=== PATIENT | female | born 1980 | race African-American/Black ===

== ENCOUNTER 2018-10-21 19:14 | Emergency (ER) | payer BC ==
[2018-10-21 19:48] LABS: #Basophils 0.1 thou/uL (0.0-0.2); #Eosinphils 0.4 thou/uL (0.0-0.7); #Lymphocytes 4.1 thou/uL (1.20-3.40); #Monocytes 0.7 thou/uL (0.11-0.59); #Neutrophils 4.1 thou/uL (1.40-6.50); %Basophils 1.4 % (0.0-1.0); %Eosinophils 4.4 % (0.0-10.0); %Lymphocytes 43.5 % (21.0-51.0); %Monocytes 7.2 % (0.0-10.0); %Neutrophils 43.5 % (42.0-75.0); Hemoglobin 14.8 g/dL (12.0-16.0); Mean Corpuscular HGB CONC 33.3 g/dL (32.0-36.0); Mean Corpuscular Hemoglobin 29.5 pg (27.0-31.0); Mean Corpuscular Volume 88.6 fL (78.0-98.0); Mean Platelet Volume 7.8 fL (7.4-10.4); Platelet Count 355 thou/uL (130-400); Red Blood Cell (RBC) Count 5.01 mill/uL (4.20-5.40); White Blood Cell (WBC) Count 9.4 thou/uL (4.8-10.8)
[2018-10-21] MEDS ORDERED: Ketorolac Tromethamine 30 MG/ML VIAL ONE (19:49)
--- NOTE | 2018-10-21 20:06 | RAD ---
CHEST ONE VIEW: 10/21/18 HISTORY: Chest pain. COMPARISON: None. FINDINGS: There is mild pulmonary edema. Heart size appears within normal limits. The aortic contour is normal. Cardiac silhouette is normal. No acute osseous abnormality. IMPRESSION: 1. Some faint perihilar opacities suggesting pulmonary edema. Normal aortic contour. 2. No pneumothorax. POS: HOME
[2018-10-21 20:10] LABS: ALT (SGPT) 16 U/L (8-55); AST (SGOT) 19 U/L (5-34); Albumin 4.6 g/dL (3.5-5.0); Alkaline Phosphatase 85 U/L (40-150); Anion Gap 14 mmol/L (10-20); BUN (Urea Nitrogen) 7 mg/dL (7.0-18.7); Bilirubin, Total 0.4 mg/dL (0.2-1.2); CK (CPK) 130 U/L (29-168); Calc. Creatinine Clearance 0 mL/min (70-130); Calcium 10.1 mg/dL (7.8-10.44); Carbon Dioxide 24 mmol/L (22-29); Chloride 103 mmol/L (98-107); Estimated GFR-MDRD Greater than 90; Globulin 2.7 g/dL (2.4-3.5); Glucose 102 mg/dL (70-105); Potassium 3.6 mmol/L (3.5-5.1); Protein, Total 7.3 g/dL (6.0-8.3); Sodium 137 mmol/L (136-145)
--- NOTE | 2018-10-23 13:05 | EKG ---
Test Reason : Blood Pressure : / mmHG Vent. Rate : 077 BPM Atrial Rate : 077 BPM P-R Int : 146 ms QRS Dur : 076 ms QT Int : 378 ms P-R-T Axes : 064 018 020 degrees QTc Int : 427 ms Normal sinus rhythm Normal ECG Confirmed by KENROY MCKEON, ALEXSANDER Malik ([id number]), manager editorial MICHAEL CROWELL ([id number]) on 10/23/2018 1:05:02 PM Referred By: Confirmed By:ALEXSANDER JASMINE MD
== END 2018-10-21 20:23 | disposition home or self-care (01) ==
LOC: ERS 19:14
DX: M54.6 Pain in thoracic spine (principal); R07.9 Chest pain, unspecified
CPT/HCPCS: 36415; 71045; 80053; 82550; 84484; 85025; 93005; 94760; 96374; J1885